=== PATIENT | female | born 1960 | race Caucasian/White ===

== ENCOUNTER 2016-09-03 10:26 | Emergency (ER) | payer BC ==
[2016-09-03 12:07] VITALS: BP 128/70
--- NOTE | 2016-09-03 12:37 | UC ---
Throat Pain/Nasal Carlos HPI - HPI Summary HPI Summary: complaint of nasal congestion sore throat and cough that started 2 nights ago yesterday started to have aching everywhere last night started to have a fever and chills slight headache denies N/V/D, slight nausea hasn't taken any medication for symptoms wants to be checked for influenza - History of Current Complaint Chief Complaint: UCGeneralIllness Stated Complaint: SORE THROAT FEVER NAUSEA BODYACHES Time Seen by Provider: 09/03/16 12:32 Hx Obtained From: Patient Hx Last Menstrual Period: ABLATION - Allergies/Home Medications Allergies/Adverse Reactions: Allergies Allergy/AdvReac Type Severity Reaction Status Date / Time Bee Venom Allergy Swelling Verified 09/03/16 11:54 Latex Allergy Swelling Verified 09/03/16 11:54 PMH/Surg Hx/FS Hx/Imm Hx Previously Healthy: Yes Endocrine History Of: Reports: Thyroid Disease Respiratory History Of: Reports: Pulmonary Embolism Cancer History Of: Denies: Breast Cancer - Surgical History Surgical History: Yes Surgery Procedure, Year, and Place: [facility], [facility] - Family History Known Family History: Positive: Other - no fhx of DVT Negative: Cardiac Disease, Hypertension, Diabetes - Social History Occupation: Employed Full-time Lives: With Family Alcohol Use: Occasionally Substance Use Type: None Smoking Status (MU): Never Smoked Tobacco - Immunization History Most Recent Influenza Vaccination: 2009 - pt states had an allergic rxn to shot , never again. Review of Systems Constitutional: Fever, Chills, Fatigue Skin: Negative Eyes: Negative ENT: Sore Throat, Nasal Discharge Respiratory: Cough Cardiovascular: Negative Gastrointestinal: Negative Genitourinary: Negative Motor: Negative Neurovascular: Negative Musculoskeletal: Myalgia Neurological: Headache Psychological: Negative All Other Systems Reviewed And Are Negative: Yes Physical Exam Triage Information Reviewed: Yes Appearance: No Pain Distress, Well-Nourished Vital Signs: Initial Vital Signs Temp 98.8 F 09/03/16 11:56 Pulse 68 09/03/16 11:56 Resp 18 09/03/16 11:56 BP 128/70 09/03/16 11:56 Pulse Ox 98 09/03/16 11:56 Vital Signs Reviewed: Yes Eyes: Positive: Conjunctiva Clear ENT: Positive: Pharyngeal erythema, Nasal congestion, Nasal drainage, TMs normal , Tonsillar swelling, Tonsillar exudate Dental: Positive: Cervical Lymphadenopathy Respiratory: Positive: Lungs clear, Normal breath sounds, No respiratory distress, No accessory muscle use Cardiovascular: Positive: RRR, No Murmur, Pulses Normal Abdomen Description: Positive: Nontender, Soft Bowel Sounds: Positive: Present Musculoskeletal Exam: Normal Neurological: Positive: Alert Psychological Exam: Normal Skin Exam: Normal Throat Pain/Nasal Course/Dx - Differential Dx/Diagnosis Differential Diagnosis/HQI/PQRI: Influenza, Pharyngitis, Tonsillitis Provider Diagnoses: viral illness- influenzalike illness Discharge - Discharge Plan Condition: Stable Disposition: HOME Patient Education Materials: Fever in Adults (ED) Referrals: Vivian Centeno MD [Primary Care Provider] - Additional Instructions: Increase fluids and rest Take acetaminophen or ibuprofen for fever or pain Please review your discharge instructions. If your symptoms do not improve please call your primary care provider or return to urgent care Your blood pressure is pre-hypertensive reading. Please contact your primary care provider within 1 day -4 weeks for further evaluation.
== END 2016-09-03 13:40 | disposition home or self-care (01) ==
LOC: UCEAST 10:26
DX: B34.9 Viral infection, unspecified (principal); J11.1 Influenza due to unidentified influenza virus with other respiratory manifestations; E07.9 Disorder of thyroid, unspecified; Z86.711 Personal history of pulmonary embolism
CPT/HCPCS: 87502; 87651; 99211; G0463

== ENCOUNTER 2017-02-03 17:08 | Emergency (ER) | payer BC ==
[2017-02-03 18:18] VITALS: BP 115/67
[2017-02-03] MEDS ORDERED: Amoxicillin/Clavulanate TAB* 875 MG PO ONE (19:00)
--- NOTE | 2017-02-03 19:05 | UC ---
Abdominal Pain Female HPI - HPI Summary HPI Summary: 56 YO FEMALE WITH ONSET LAST PM OF LOWER ABD PAIN/NAUSEA/ANOREXIA AND DIARRHEA FEVERISH AND CHILLS NO VOMITING - History of Current Complaint Chief Complaint: UCGU Stated Complaint: BACK PAIN Time Seen by Provider: 02/03/17 18:33 Hx Obtained From: Patient Hx Last Menstrual Period: ablation Onset/Duration: Gradual Onset, Lasting Hours Timing: Constant Severity Initially: Mild Severity Currently: Mild Pain Intensity: 4 Pain Scale Used: 0-10 Numeric Location: Discrete At: LLQ Radiates: No Radiates to: Other - HAS HAD LEFT HIP PAIN X 2 WEEKS Character: Dull Alleviating Factor(s): Position Associated Signs and Symptoms: Positive: Fever, Nausea, Diarrhea Allergies/Adverse Reactions: Allergies Allergy/AdvReac Type Severity Reaction Status Date / Time Bee Venom Allergy Swelling Verified 02/03/17 18:18 Latex Allergy Swelling Verified 02/03/17 18:18 Home Medications: Home Medications Levothyroxine TAB* [Synthroid 150 MCG TAB*] 150 mcg PO DAILY 02/03/17 [History Confirmed 02/03/17] PMH/Surg Hx/FS Hx/Imm Hx Previously Healthy: Yes Cardiovascular History: Deep Vein Thrombosis - Surgical History Surgical History: Yes Surgery Procedure, Year, and Place: [facility], [facility] - Family History Known Family History: Positive: Other - no fhx of DVT Negative: Cardiac Disease, Hypertension, Diabetes - Social History Alcohol Use: Weekly Substance Use Type: None Smoking Status (MU): Never Smoked Tobacco - Immunization History Most Recent Influenza Vaccination: 2009 - pt states had an allergic rxn to shot , never again. Review of Systems Constitutional: Fever, Chills Skin: Negative Eyes: Negative ENT: Negative Respiratory: Negative Cardiovascular: Negative Gastrointestinal: Diarrhea, Nausea Genitourinary: Negative Motor: Negative Neurovascular: Negative Musculoskeletal: Negative Neurological: Negative Psychological: Negative Is Patient Immunocompromised?: No All Other Systems Reviewed And Are Negative: Yes Physical Exam Triage Information Reviewed: Yes Appearance: Well-Appearing, No Pain Distress, Well-Nourished Vital Signs: Initial Vital Signs Temp 100.0 F 02/03/17 18:11 Pulse 86 02/03/17 18:11 Resp 16 02/03/17 18:11 BP 115/67 02/03/17 18:11 Pulse Ox 97 02/03/17 18:11 Vital Signs Reviewed: Yes Eyes: Positive: Conjunctiva Clear ENT: Positive: Hearing grossly normal. Negative: Nasal congestion, Nasal drainage, Trismus, Muffled/hoarse voice Neck: Positive: Supple, Nontender Respiratory: Positive: Lungs clear, Normal breath sounds, No respiratory distress, No accessory muscle use Cardiovascular: Positive: RRR, No Murmur Abdomen Description: Positive: Soft, Other: - LLQ TENDERNESS. Negative: Nontender, CVA Tenderness (R), CVA Tenderness (L) Musculoskeletal: Positive: ROM Intact, Edema @ - LEFT LEG...CHRONIC Neurological: Positive: Alert Psychological Exam: Normal Skin Exam: Normal Abd Pain Female Course/Dx - Course Course Of Treatment: I SUGGEST SHE GO TO THE ED TONIGHT FOR BLOOD WORK AND IMAGING. SHE DECLINE ...DESIRES OUT PT BLOOD WORK AND WILLCONTACT HER PMD. IN AM...SAYS SHE WILL GO TO ER IF SYMPTOMS WORSEN. SHE IS AWARE THAT THIS APPROACH COULD RESULT IN WORSENING OF HER CONDITION AND DELAY IN DIAGNOSIS AND MAY PUT HER AT THE RISK OF REQUIRING SURGERY - Differential Dx/Diagnosis Provider Diagnoses: ABDOMINAL PAIN OF UNCERTAIN CAUSE. ? DIVERTICULITIS VS OTHER Discharge - Discharge Plan Condition: Stable Disposition: HOME Prescriptions: Amoxicillin/Clavulanate TAB* [Augmentin TAB 875*] 875 mg PO BID #14 tab Ondansetron TAB* [Zofran 4 MG Tab*] 4 mg PO Q6H PRN #10 tab PRN Reason: Nausea Patient Education Materials: Diverticulitis (ED) Referrals: Vivian Centeno MD [Primary Care Provider] - 1 Day Additional Instructions: THE MOST PRUDENT THING TO DO WOULD BE TO GO TO THE ER FOR INVESTIGATION OF YOUR SYMPTOMS WE WILL TREAT YOU FOR POSSIBLE DIVERTICULITIS TO ER FOR NEW OR WORSENING SYMPTOMS CALL YOU MD IN AM YOU SHOULD GET REEVALUATED TOMORROW
[2017-02-04 11:15] LABS: Hematocrit 42 % (35-47); Mean Corpuscular HGB Conc 34 g/dl (31-36); Mean Corpuscular Hemoglobin 31 pg (27-31); Mean Corpuscular Volume 93 fL (80-97); Mean Platelet Volume 9 um3 (7.4-10.4); Red Blood Count 4.45 10^6/ul (4.0-5.4); Red Cell Distribution Width 13 % (10.5-15); White Blood Count 5.4 10^3/ul (3.5-10.8)
[2017-02-04 11:29] LABS: Albumin 4.3 g/dL (3.2-5.2); BUN/Creatinine Ratio 18.8 (8-20); Calcium 9.7 mg/dL (8.6-10.3); EGFR African American 96.1 (>60); EGFR Non-African American 74.7 (>60); Globulin 2.3 g/dL (2-4); Potassium 4.2 mmol/L (3.5-5.0); Total Bilirubin 0.5 mg/dL (0.2-1.0); Total Protein 6.6 g/dL (6.4-8.9)
--- NOTE | 2017-02-04 17:23 | ED ---
Progress - Progress Note Progress Note: NO ACUTE CHANGES ON LABS. IF WORSE ER. Course/Dx - Course Course Of Treatment: I SUGGEST SHE GO TO THE ED TONIGHT FOR BLOOD WORK AND IMAGING. SHE DECLINE ...DESIRES OUT PT BLOOD WORK AND WILLCONTACT HER PMD. IN AM...SAYS SHE WILL GO TO ER IF SYMPTOMS WORSEN. SHE IS AWARE THAT THIS APPROACH COULD RESULT IN WORSENING OF HER CONDITION AND DELAY IN DIAGNOSIS AND MAY PUT HER AT THE RISK OF REQUIRING SURGERY - Diagnoses Provider Diagnoses: Abdominal pain
== END 2017-02-03 19:27 | disposition home or self-care (01) ==
LOC: UCEAST 17:08
DX: R10.9 Unspecified abdominal pain (principal); R11.0 Nausea; R63.0 Anorexia; R19.7 Diarrhea, unspecified; Z86.718 Personal history of other venous thrombosis and embolism
CPT/HCPCS: 36415; 80053; 81003; 83690; 85025; 99212; A9270-GY; G0463

== ENCOUNTER 2017-11-30 07:09 | Emergency (ER) | payer BC ==
[2017-11-30 07:18] VITALS: BP 126/60
[2017-11-30] MEDS ORDERED: Cephalexin CAP* 500 MG PO ONE (07:38)
--- NOTE | 2017-11-30 07:40 | UC ---
Complaint Female HPI - HPI Summary HPI Summary: This is a 57-year-old female with a 3 day history of suprapubic abdominal pain/ spasm as well as urgency and frequency of urination. Had no fever or chills. She has had some mild lower back pain. She has had no nausea vomiting or diarrhea. She denies any vaginal discharge or itching. She has had 1 prior UTI a few years ago. Had no history kidney stones. Currently anticoagulated for pulmonary embolism. - History Of Current Complaint Chief Complaint: UCAbdominalPain Stated Complaint: ABD PAIN Time Seen by Provider: 11/30/17 07:13 Hx Obtained From: Patient Hx Last Menstrual Period: ablation Onset/Duration: Gradual Onset, Lasting Days Timing: Constant Severity Initially: Mild Severity Currently: Mild Pain Intensity: 4 Pain Scale Used: 0-10 Numeric Character: Colicy Aggravating Factor(s): Urination - Allergies/Home Medications Allergies/Adverse Reactions: Allergies Allergy/AdvReac Type Severity Reaction Status Date / Time bee venom protein (honey bee) Allergy Swelling Verified 11/30/17 07:19 latex Allergy Swelling Verified 11/30/17 07:19 PMH/Surg Hx/FS Hx/Imm Hx Previously Healthy: Yes Cardiovascular History: Hypertension, Deep Vein Thrombosis Respiratory History: Pulmonary Embolism - Surgical History Surgical History: Yes Surgery Procedure, Year, and Place: [facility] [place] [facility] - Family History Known Family History: Positive: Other - no fhx of DVT Negative: Cardiac Disease, Hypertension, Diabetes - Social History Alcohol Use: Occasionally Substance Use Type: None Smoking Status (MU): Never Smoked Tobacco - Immunization History Most Recent Influenza Vaccination: 2009 - pt states had an allergic rxn to shot , never again. Review of Systems Constitutional: Negative Skin: Negative Eyes: Negative ENT: Negative Respiratory: Negative Cardiovascular: Negative Gastrointestinal: Abdominal Pain Genitourinary: Frequency, Urgency Motor: Negative Neurovascular: Negative Musculoskeletal: Negative Neurological: Negative Psychological: Negative Is Patient Immunocompromised?: No All Other Systems Reviewed And Are Negative: Yes Physical Exam Triage Information Reviewed: Yes Appearance: Well-Appearing, No Pain Distress, Well-Nourished Vital Signs: Initial Vital Signs Temp 99.5 F 11/30/17 07:13 Pulse 88 11/30/17 07:13 Resp 18 11/30/17 07:13 BP 126/60 11/30/17 07:13 Pulse Ox 99 11/30/17 07:13 Vital Signs Reviewed: Yes Eyes: Positive: Conjunctiva Clear ENT: Positive: Hearing grossly normal. Negative: Nasal congestion, Nasal drainage, Trismus, Muffled voice, Hoarse voice Neck: Positive: Supple Respiratory: Positive: Lungs clear, Normal breath sounds, No respiratory distress, No accessory muscle use Cardiovascular: Positive: RRR, No Murmur Abdomen Description: Positive: Nontender, No Organomegaly. Negative: CVA Tenderness (R) Bowel Sounds: Positive: Present Musculoskeletal: Positive: ROM Intact, Other: Neurological Exam: Normal Neurological: Positive: Alert Psychological Exam: Normal - Left leg wearing a compression stocking. Skin Exam: Normal Diagnostics - Laboratory Diagnostic Studies Completed/Ordered: UA +++rbc, +++leuks, +nitrite Complaint Female Dx - Differential Dx/Diagnosis Provider Diagnoses: UTI Discharge - Sign-Out/Discharge Documenting (check all that apply): Discharge/Admit/Transfer - Discharge Plan Condition: Stable Disposition: HOME Prescriptions: Cephalexin CAP* [Keflex CAP*] 500 mg PO BID #13 cap Patient Education Materials: Urinary Tract Infection in Women (ED) Referrals: Vivian Centeno MD [Primary Care Provider] - 1 Week (recheck in 1-2 weeks) Additional Instructions: recheck for new or worsening symptoms a urine culture is pending if you are not back to normal in 48 hours please call us for culture results - Billing Disposition and Condition Condition: STABLE Disposition: Home
== END 2017-11-30 07:43 | disposition home or self-care (01) ==
LOC: UCEAST 07:09
DX: N39.0 Urinary tract infection, site not specified (principal); Z87.440 Personal history of urinary (tract) infections; I10 Essential (primary) hypertension; Z86.718 Personal history of other venous thrombosis and embolism; Z86.711 Personal history of pulmonary embolism; Z79.01 Long term (current) use of anticoagulants; Z91.030 Bee allergy status; Z91.040 Latex allergy status
CPT/HCPCS: 81003; 87077; 87086; 87186; 99212; A9270-GY; G0463